=== PATIENT | male | born 1970 | race African-American/Black ===

== ENCOUNTER 2018-09-08 13:34 | Emergency (ER) | payer MEDICAID ==
[~2018-09-08] VITALS: Ht 167.6 cm; Wt 75.0 kg
[2018-09-08 13:38] VITALS: BP 138/88
== END 2018-09-08 15:23 | disposition left against medical advice (07) ==
LOC: ER 13:49
DX: Z53.21 Procedure and treatment not carried out due to patient leaving prior to being seen by health care provider (principal)